=== PATIENT | female | born 1960 | race Hispanic/Latino ===

== ENCOUNTER 2019-06-15 07:11 | Day surgery (SDC) | payer MEDICARE ==
[2019-06-14 16:13] VITALS: BP 131/63
[2019-06-14 16:17] LABS: BASOPHILS % (AUTO) 0.7 % (0.0-5.0); EOSINOPHILS % (AUTO) 3.8 % (0.0-8.0); HEMATOCRIT 34.7 % (36-48); LYMPHOCYTES % (AUTO) 31.8 % (21.0-51.0); MEAN CORPUSCULAR HEMOGLOBIN 29.3 pg (27.0-33.0); MEAN CORPUSCULAR HGB CONC 32.6 g/dL (32.0-36.0); MEAN CORPUSCULAR VOLUME 89.9 fL (79-99); NEUTROPHILS % (AUTO) 53.7 % (40.0-77.0); PLATELET COUNT (AUTO) 192 K/uL (130-400); RED BLOOD CELL COUNT(AUTO) 3.86 MIL/uL (4.00-5.50); WHITE BLOOD COUNT (AUTO) 4.5 K/uL (4.8-10.8)
[2019-06-14 16:28] LABS: BILIRUBIN,URINE Negative (NEGATIVE); COLOR,URINE Yellow (YELLOW); GLUCOSE, URINE (UA) Negative (NEGATIVE); KETONES,URINE Negative (NEGATIVE); LEUKOCYTE ESTERASE ,URINE Trace (NEGATIVE); NITRATE,URINE Negative (NEGATIVE); OCCULT BLOOD,URINE Moderate (NEGATIVE); PROTEIN,URINE Negative (NEGATIVE)
[2019-06-14 16:29] LABS: APPEARANCE,URINE CLEAR (CLEAR)
[2019-06-14 16:31] LABS: CREATININE 0.7 mg/dL (0.5-1.5); POTASSIUM 3.8 mmol/L (3.5-5.1)
[2019-06-14 16:37] LABS: BACTERIA,URINE Rare /HPF (None Seen); RBC,URINE None Seen /HPF (0-1); SQUAMOUS EPITHELIAL CELL,UR 0-2 /HPF (0-2); WBC,URINE 0-1 /HPF (0-1)
[~2019-06-15] VITALS: Ht 162.6 cm; Wt 62.8 kg
[2019-06-15] VITALS (15 sets, daily range): BP systolic 113–133; BP diastolic 50–79
[~2019-06-15 07:11] MED LIST: ADV500 IH; ALBU18HF7 IH; B12 INJ IJ; CARB15DR OP; FLUTICASONE NASAL; FOLIC ACID PO; PANT20TA PO; VITAMIN D3 PO; ZOLOFT PO
[2019-06-15] MEDS ORDERED: LACTATED RINGERS 1000ML 1,000 ML IV ONE (07:54)
[2019-06-15] MEDS ORDERED: GENTAMICIN 80 MG/NS 100 ML PB 100 ML IV ONE (07:54)
[2019-06-15] MEDS: CEFTRIAXONE SODIUM 1 GM ONE ×2 (08:08→09:00)
[2019-06-15] MEDS ORDERED: LIDOCAINE PF 2% 5ML ABBOJECT ONE (08:19)
[2019-06-15] MEDS ORDERED: IOHEXOL-350 50ML VIAL IV ONE (08:20)
[2019-06-15] MEDS ORDERED: FENTANYL CITRATE PF 50 MCG/1 ML 2ML VIAL ONE (08:20)
[2019-06-15] MEDS ORDERED: MIDAZOLAM HCL 1 MG/ML 2ML VIAL ONE (08:20)
[2019-06-15] MEDS ORDERED: PROPOFOL 10 MG/ML 20ML VIAL IV ONE (08:20)
[2019-06-15] MEDS ORDERED: ACET1TAB12 PO (08:25)
[2019-06-15] MEDS ORDERED: EPHEDRINE SULFATE 50 MG/ML AMPULE ONE (09:14)
== END 2019-06-15 11:50 | disposition home or self-care (01) ==
LOC: DAH 07:11
PROVIDERS: ATTEND Urology
DX: N20.1 Calculus of ureter (principal); J44.9 Chronic obstructive pulmonary disease, unspecified; E78.5 Hyperlipidemia, unspecified; K21.9 Gastro-esophageal reflux disease without esophagitis; E03.9 Hypothyroidism, unspecified; Z88.8 Allergy status to other drugs, medicaments and biological substances; Z98.890 Other specified postprocedural states; Z90.710 Acquired absence of both cervix and uterus; Z79.899 Other long term (current) drug therapy; Z82.49 Family history of ischemic heart disease and other diseases of the circulatory system; Z82.5 Family history of asthma and other chronic lower respiratory diseases
CPT/HCPCS: 36415 ×2; 52356; 80048; 81001; 82360; 85025; 87088; 93005; A4215; A4221; A4222; A4223 ×2; A4354; A4600; A4663; A4930; A6204; C1758; C1769; C2617; J0696; J1580; J2001; J2250; J2704; J3010; J3490; J7030; J7120; 77002; Q9967